=== PATIENT | male | born 1960 | race Caucasian/White ===

== ENCOUNTER 2017-03-04 17:22 | Emergency (ER) | payer SELFPAY ==
[~2017-03-04] VITALS: Ht 180.3 cm; Wt 88.6 kg
[~2017-03-04 17:22] MED LIST: PANT1TAB48 PO
[2017-03-04 17:30] VITALS: TEMP 36.8; Ht 180.3 cm; Wt 88.6 kg
[2017-03-04] MEDS ORDERED: ACET-1256 PO (17:59)
--- NOTE | 2017-03-04 18:39 | DIAGNOSTIC IMAGING REPORT ---
RIGHT KNEE 3 VIEWS CLINICAL HISTORY: Right knee pain. FINDINGS: AP, crosstable lateral, and sunrise views of the right knee are obtained. No prior studies are available for comparison at the time of dictation. The skeletal structures are well mineralized. No fracture is seen. There is moderate degenerative narrowing at the patellofemoral articulation. Mild narrowing is seen in the lateral compartment. Postoperative change is consistent with previous anterior cruciate ligament repair. A calcified fabella is incidentally noted. There are marginal osteophytes and patellar enthesophytes. A small joint effusion is noted. Prepatellar soft tissue swelling is observed. IMPRESSION: 1. Joint effusion and prepatellar soft tissue swelling. No acute bony abnormality is seen. 2. Degenerative and postoperative change as above. Electronically signed by: Jude Honeycutt M.D. 03/04/2017 6:38 PM Dictated Date/Time: 03/04/2017 6:36 PM
[2017-03-04] MEDS ORDERED: TRAM-10 PO (19:14)
[2017-03-04 19:33] VITALS: BP 127/91; PULSE 50; O2SAT 97
--- NOTE | 2017-03-04 23:17 | EMERGENCY ROOM VISIT NOTE ---
History First contact with patient: 17:44 Chief Complaint: KNEEPAIN Stated Complaint: R KNEE PAIN History of Present Illness The patient is a 56 year old male who presents to the Emergency Room with complaints of right knee pain, swelling and sensation like his knee is clicking or locking. The patient reports a prior history of anterior cruciate ligament reconstruction many years ago by Dr. Nelson. He reports that he was on his feet a lot yesterday, but denies any significant injury. The patient rates his discomfort an 8 out of 10. Review of Systems 10 system review was performed and was negative except for pertinent positives and negatives as indicated in history of present illness Past Medical/Surgical History Medical Problems: (1) Arthritis (2) Chronic hepatitis C (3) Neuropathy Surgical Problems: (1) Hx of tonsillectomy Family History Patient reports no known family medical history. Social History Smoking Status: Never Smoker Alcohol Use: none Marital Status: Housing Status: lives with family Occupation Status: employed Current/Historical Medications Scheduled Pantoprazole (Protonix), 40 MG PO DAILY Scheduled PRN Acetaminophen (Tylenol), 1,000 MG PO Q6H PRN for Pain Tramadol (Ultram), 1-2 TAB PO Q4H PRN for Pain Physical Exam Vital Signs Date Time Temp Pulse Resp B/P (MAP) Pulse Ox O2 Delivery O2 Flow Rate FiO2 03/04/17 19:33 50 127/91 97 03/04/17 17:30 36.8 51 20 135/80 97 Room Air Physical Exam CONSTITUTIONAL: Healthy and well nourished. Alert and oriented X 3 with positive affect. Patient does not appear in any acute distress. HEENT: Normocephalic, atraumatic. Pupils equal, round and reactive. NECK: Full active range of motion without discomfort. MUSCULOSKELETAL: Examination of the right knee does not show any erythema or skin wounds. 1+ joint effusion is noted. The patient has mild discomfort with flexion and extension. He has mild tenderness to palpation over the posteromedial joint line. Collateral ligaments are intact with varus and valgus stress. No popliteal masses. Negative anterior draw. Pedal pulses are intact. INTEGUMENTARY: No rash or other significant dermatologic conditions noted. NEUROLOGIC: No focal neurologic deficits noted. Medical Decision & Procedures ER Provider Diagnostic Interpretation: My interpretation of right knee x-rays does not show any destruction of lesions , fractures or dislocation. Small joint effusion is noted. Radiologist report is as follows: RIGHT KNEE 3 VIEWS CLINICAL HISTORY: Right knee pain. FINDINGS: AP, crosstable lateral, and sunrise views of the right knee are obtained. No prior studies are available for comparison at the time of dictation. The skeletal structures are well mineralized. No fracture is seen. There is moderate degenerative narrowing at the patellofemoral articulation. Mild narrowing is seen in the lateral compartment. Postoperative change is consistent with previous anterior cruciate ligament repair. A calcified fabella is incidentally noted. There are marginal osteophytes and patellar enthesophytes. A small joint effusion is noted. Prepatellar soft tissue swelling is observed. IMPRESSION: 1. Joint effusion and prepatellar soft tissue swelling. No acute bony abnormality is seen. 2. Degenerative and postoperative change as above. ED Course Patient history and physical exam were performed. Nurse's notes were reviewed. Vital signs were reviewed and were normal. X-rays of the right knee shows a small joint effusion, otherwise no acute findings are noted. The patient reports that he does still have his crutches at home. He was encouraged to limit weightbearing until reevaluated by Dr. Nelson. He was encouraged to alternate ibuprofen and Tylenol as needed for additional pain relief. Intermittent application of ice for swelling. The patient was happy with plan of care, voiced understanding of all discharge instructions, and rated his pain an 8 out of 10 at the time of discharge. Medical Decision Medication Reconcilliation Current Medication List: was personally reviewed by me Blood Pressure Screening Patient's blood pressure: Normal blood pressure Impression Primary Impression: Right knee pain Additional Impression: Status post arthroscopic surgery of right knee Departure Information Prescriptions Tramadol (Ultram) 50 Mg Tab 1-2 TAB PO Q4H Y for Pain, #20 TAB For Initial Treatment Prov: Bry Bello PA 03/04/17 Referrals Higinio Bianchi M.D. (PCP) Patient Instructions My [facility] Problem Qualifiers Primary Impression: Right knee pain Chronicity: acute Qualified Codes: M25.561 - Pain in right knee
== END 2017-03-04 19:30 | disposition home or self-care (01) ==
LOC: C.EDB 17:24 → C.EDD 19:30
DX: M25.561 Pain in right knee (principal); Z98.890 Other specified postprocedural states; M19.90 Unspecified osteoarthritis, unspecified site; B18.2 Chronic viral hepatitis C; G62.9 Polyneuropathy, unspecified; Z79.899 Other long term (current) drug therapy

== ENCOUNTER 2017-03-26 11:29 | Emergency (ER) | payer SELFPAY ==
[~2017-03-26] VITALS: Ht 180.3 cm; Wt 88.5 kg
[2017-03-26 11:29] VITALS: TEMP 36.5; O2SAT 96; Ht 180.3 cm; Wt 88.5 kg
[~2017-03-26 11:29] MED LIST changes: -ASPIRIN 325 MG ECTAB PO ONE; -ATROPINE SULFATE 0.1 MG/ML 5ML SYR IV PRN; -BETAMETH SOD PHOS/ACETATE IA 6 MG/ML XX ONE; -BUPIVACAINE 0.5 % 5 MG/1 ML MPF 30ML VIAL ONE; -CEFAZOLIN 2000MG IV PUSH 10 ML IV SCH; -DEXAMETHASONE SOD INJ 4 MG/ML VIAL ONE; -EpHEDrine SULFATE INJ 50 MG/ML AMP IV PRN; -EpINEphrine INJ 1MG/ML AMP 1 MG/ML AMP ONE; -FAMOTIDINE 10 MG/ML 2ML VIAL IV STA; -FAMOTIDINE IV INJ 20 MG in SYRINGE 3 ML IV ONE; -FENTANYL CITRATE INJ 50 MCG/1 ML 2 ML VIAL IV PRN; -FENTANYL CITRATE INJ 50 MCG/1 ML 2 ML VIAL ONE; -HYDROmorphone INJ 1 MG/ML SYR IV PRN; -KETOROLAC TROMETHAMINE 30 MG/ML VIAL ONE; -LACTATED RINGER'S 1000ML 1,000 ML IV SCH; -LIDOCAINE HCL 2% 2 ML VIAL (20MG/ML) ONE; -METOCLOPRAMIDE HCL INJ 5 MG/ML 2 ML VIAL IV ONE; -METOCLOPRAMIDE HCL INJ 5 MG/ML 2 ML VIAL ONE; -MIDAZOLAM HCL 1 MG/ML 2ML VIAL ONE; -MoRPHine SULFATE 10 MG/ML CARP/VIAL ONE; -MoRPHine SULFATE 2 MG/ML CARP IV ONE; -NITROGLYCERIN 0.4 MG SL PER TAB CHARGE ONE; -NITROGLYCERIN 0.4 MG SL PER TAB CHARGE SL STA; -ONDANSETRON INJ 2 MG/ML 2 ML VIAL IV PRN; -ONDANSETRON INJ 2 MG/ML 2 ML VIAL ONE; -OXYCODONE/ACETAMINOPHEN 5-325 TAB PO PRN; -PROPOFOL IV EMULSION 10 MG/ML 20 ML VIAL IV ONE; -RANITIDINE HCL 25 MG/ML INJ ONE; -RANITIDINE IV 50 MG in DEXTROSE 5% 100ML 100 ML IV SCH; -ROPIVACAINE 0.5% 5 MG/ML 30 ML VIAL ONE; -SODIUM CHLORIDE 0.9% 1000ML 1,000 ML IV SCH
[2017-03-26] MEDS ORDERED: ALBUT/IPRATROP 3MG/0.5MG NEB 3 ML VIAL INH STA (11:41)
[2017-03-26 11:55] LABS: BASO % 0.1 %; BASO ABS # 0.01 K/uL (0-0.2); COMPLETE YES; EOS % 0.6 %; HEMATOCRIT 43.8 % (42-52); IG% 0.3 %; LYMPH % 7.1 %; LYMPH ABS # 0.88 K/uL (1.2-3.4); MEAN CELL VOLUME 95.4 fL (80-100); MEAN CORPUSCULAR HEMOGLOBIN 33.6 pg (25-34); MEAN CORPUSCULAR HGB CONC 35.2 g/dl (32-36); MEAN PLATELET VOLUME 11.1 fL (7.4-10.4); NEUT % 90.9 %; PLATELET COUNT 161 K/uL (130-400); RED BLOOD COUNT 4.59 M/uL (4.7-6.1); WHITE BLOOD COUNT 12.38 K/uL (4.8-10.8)
--- NOTE | 2017-03-26 11:57 | DIAGNOSTIC IMAGING REPORT ---
CHEST ONE VIEW PORTABLE HISTORY: Evaluate Fever/Sepsis COMPARISON: Chest 02/16/2015. FINDINGS: The lungs are clear. Cardiac silhouette is normal in size. No pleural effusions. No pneumothorax. IMPRESSION: No acute process. Electronically signed by: Brent Rodriguez M.D. 03/26/2017 11:55 AM Dictated Date/Time: 03/26/2017 11:54 AM
[2017-03-26 12:08] LABS: INR 0.9 (0.9-1.1); PARTIAL THROMBOPLASTIN RATIO 1.1
[2017-03-26 12:13] LABS: ALT/SGPT 24 U/L (12-78); BLOOD UREA NITROGEN 18 mg/dl (7-18); BUN/CREATININE RATIO 20.8 (10-20); CALCIUM 8.3 mg/dl (8.5-10.1); CARBON DIOXIDE 26 mmol/L (21-32); CHLORIDE 107 mmol/L (98-107); CREATININE 0.84 mg/dl (0.60-1.40); GLUCOSE 131 mg/dl (70-99); POTASSIUM 4.3 mmol/L (3.5-5.1); SODIUM 139 mmol/L (136-145)
[2017-03-26 12:24] LABS: ALKALINE PHOSPHATASE 70 U/L (45-117); AST/SGOT 17 U/L (15-37); CKMB/CK RATIO 2.2 (0-3.0); THYROID STIMULATING HORMONE 0.935 uIu/ml (0.300-4.500)
--- NOTE | 2017-03-26 14:45 | EMERGENCY ROOM VISIT NOTE ---
History Report prepared by Sita: Harriet Mccann Under the Supervision of: Dr. Sd Cohen D.O. First contact with patient: 11:30 Chief Complaint: CHEST PAIN Stated Complaint: CHEST PRESSURE History of Present Illness The patient is a 56 year old male who presents to the Emergency Room with complaints of constant left-sided chest pain for the past 1.5 hours. The patient was having an outpatient right knee arthroplasty. When he was waking up from general anesthesia the patient developed some left-sided chest pain. Anesthesiology did an ECG and it appeared normal. They sent off a troponin. The patient's chest pain did not improve. He was given 1 nitro, 324 aspirin, 2 mg morphine, Zantac, and Reglan. The patient was sent to the ED by ambulance for further evaluation. The patient describes his pain as a chest pressure and rates it as a 7/10 in severity. Taking a deep breath exacerbates his pain. He denies any personal cardiac history of history of blood clots. 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 Review of Systems See HPI for pertinent positives & negatives. A total of 10 systems reviewed and were otherwise negative. Past Medical & Surgical Medical Problems: (1) Arthritis (2) Chronic hepatitis C (3) Neuropathy Surgical Problems: (1) History of arthroscopic knee surgery (2) History of eye surgery (3) History of hernia repair (4) History of repair of anterior cruciate ligament of right knee (5) Hx of tonsillectomy Family History Patient reports no known family medical history. Social History Smoking Status: Never Smoker Alcohol Use: none Marital Status: Housing Status: lives with family Occupation Status: employed Current/Historical Medications Scheduled Pantoprazole (Protonix), 40 MG PO QAM Allergies Coded Allergies: No Known Allergies (Unverified , 03/26/17) Physical Exam Vital Signs Date Time Temp Pulse Resp B/P (MAP) Pulse Ox O2 Delivery O2 Flow Rate FiO2 03/26/17 14:32 53 143/103 03/26/17 14:05 51 14 97 03/26/17 14:00 52 18 140/80 97 Room Air 03/26/17 14:00 140/80 03/26/17 13:35 61 18 96 03/26/17 13:30 113/83 03/26/17 13:05 48 19 96 03/26/17 13:01 158/99 03/26/17 12:35 52 11 97 03/26/17 12:30 159/99 03/26/17 12:24 49 17 100 03/26/17 12:03 45 03/26/17 12:00 141/85 03/26/17 11:54 50 18 96 03/26/17 11:49 49 16 135/92 99 Room Air 03/26/17 11:35 126/77 03/26/17 11:29 96 Room Air 03/26/17 11:29 96 Room Air 03/26/17 11:29 36.5 53 16 126/77 96 Room Air Physical Exam CONSTITUTIONAL/VITAL SIGNS: Reviewed / noted above. GENERAL: Non-toxic in appearance. INTEGUMENTARY: Warm, dry, and [place]. HEAD: Normocephalic. EYES: without scleral icterus or trauma. ENT/OROPHARYNX: clear and moist. LYMPHADENOPATHY/NECK: Is supple without lymphadenopathy or meningismus. RESPIRATORY: Lungs clear and equal. CARDIOVASCULAR: Regular rate and rhythm. GI/ABDOMEN: Soft and nontender. No organomegaly or pulsatile mass. No rebound or guarding. Normal bowel sounds. EXTREMITIES: Warm and well perfused. BACK: No CVA tenderness. NEUROLOGICAL: Intact without focal deficits. PSYCHIATRIC: normal affect. MUSCULOSKELETAL: Normally developed with good muscle tone. Medical Decision & Procedures ER Provider Diagnostic Interpretation: Radiology results as stated below per my review and radiologist interpretation: CHEST ONE VIEW PORTABLE HISTORY: Evaluate Fever/Sepsis COMPARISON: Chest 02/16/2015. FINDINGS: The lungs are clear. Cardiac silhouette is normal in size. No pleural effusions. No pneumothorax. IMPRESSION: No acute process. Electronically signed by: Brent Rodriguez M.D. 03/26/2017 11:55 AM Dictated Date/Time: 03/26/2017 11:54 AM Laboratory Results 03/26/17 11:42 Red Blood Count 4.59, Mean Corpuscular Volume 95.4, Mean Corpuscular Hemoglobin 33.6, Mean Corpuscular Hemoglobin Concent 35.2, Mean Platelet Volume 11.1, Neutrophils (%) (Auto) 90.9, Lymphocytes (%) (Auto) 7.1, Monocytes (%) (Auto) 1.0, Eosinophils (%) (Auto) 0.6, Basophils (%) (Auto) 0.1, Neutrophils # (Auto) 11.26, Lymphocytes # (Auto) 0.88, Monocytes # (Auto) 0.12, Eosinophils # (Auto) 0.07, Basophils # (Auto) 0.01 03/26/17 11:42 Test 03/26/17 11:42 03/26/17 13:52 White Blood Count 12.38 K/uL (4.8-10.8) Red Blood Count 4.59 M/uL (4.7-6.1) Hemoglobin 15.4 g/dL (14.0-18.0) Hematocrit 43.8 % (42-52) Mean Corpuscular Volume 95.4 fL (80-100) Mean Corpuscular Hemoglobin 33.6 pg (25-34) Mean Corpuscular Hemoglobin Concent 35.2 g/dl (32-36) Platelet Count 161 K/uL (130-400) Mean Platelet Volume 11.1 fL (7.4-10.4) Neutrophils (%) (Auto) 90.9 % Lymphocytes (%) (Auto) 7.1 % Monocytes (%) (Auto) 1.0 % Eosinophils (%) (Auto) 0.6 % Basophils (%) (Auto) 0.1 % Neutrophils # (Auto) 11.26 K/uL (1.4-6.5) Lymphocytes # (Auto) 0.88 K/uL (1.2-3.4) Monocytes # (Auto) 0.12 K/uL (0.11-0.59) Eosinophils # (Auto) 0.07 K/uL (0-0.5) Basophils # (Auto) 0.01 K/uL (0-0.2) RDW Standard Deviation 46.0 fL (36.4-46.3) RDW Coefficient of Variation 13.2 % (11.5-14.5) Immature Granulocyte % (Auto) 0.3 % Immature Granulocyte # (Auto) 0.04 K/uL (0.00-0.02) Prothrombin Time 10.0 SECONDS (9.0-12.0) Prothromb Time International Ratio 0.9 (0.9-1.1) Activated Partial Thromboplast Time 27.5 SECONDS (21.0-31.0) Partial Thromboplastin Ratio 1.1 Anion Gap 7.0 mmol/L (3-11) Est Creatinine Clear Calc Drug Dose 104.5 ml/min Estimated GFR () 113.4 Estimated GFR (Non- 97.9 BUN/Creatinine Ratio 20.8 (10-20) Calcium Level 8.3 mg/dl (8.5-10.1) Total Bilirubin 0.2 mg/dl (0.2-1) Direct Bilirubin 0.1 mg/dl (0-0.2) Aspartate Amino Transf (AST/SGOT) 17 U/L (15-37) Alanine Aminotransferase (ALT/SGPT) 24 U/L (12-78) Alkaline Phosphatase 70 U/L (45-117) Total Creatine Kinase 170 U/L (39-308) Creatine Kinase MB 3.8 ng/ml (0.5-3.6) Creatine Kinase MB Ratio 2.2 (0-3.0) Total Protein 6.8 gm/dl (6.4-8.2) Albumin 3.5 gm/dl (3.4-5.0) Lipase 163 U/L (73-393) Thyroid Stimulating Hormone (TSH) 0.935 uIu/ml (0.300-4.500) Troponin I < 0.015 ng/ml (0-0.045) Laboratory results as stated above per my review. Medications Administered Medications (Trade) Dose Ordered Sig/Laura Route Start Time Stop Time Status Last Admin Dose Admin Albuterol/ Ipratropium (Duoneb) 3 ml NOW STAT INH 03/26/17 11:41 03/26/17 11:42 DC 03/26/17 11:51 3 ML ECG Indication: chest pain Rate (beats per minute): 47 Rhythm: sinus bradycardia Findings: no acute ischemic change, no ectopy ED Course 1130: Previous medical records were reviewed. I had spoken with the anesthesiologist prior to the patient's arrival. The patient was evaluated in room C3. A complete history and physical examination was performed. 1141: DuoNeb 3 ml INH 1447: I reassessed the patient at this time. He is feeling better and resting comfortably. I discussed the results and treatment plan with the patient. I answered all pertaining questions that he had. He expressed understanding and verbalized agreement. The patient will be discharged home. Medical Decision Differentials considered include acute myocardial infarction, acute coronary syndrome, myocarditis, pericarditis, pericardial effusions /tamponade, esophageal perforation, thoracic aortic dissection, pulmonary embolism, pneumonia, pneumothorax, pancreatitis, shingles, acute cholecystitis, and perforated abdominal viscus. This is a 56-year-old male who presents to the ED with a chief complaint of chest discomfort following surgery. The patient was awakening from general anesthesia and develop chest discomfort. He was treated over in the outpatient surgery unit and received some morphine, Reglan and Zantac. This did not help and therefore the patient was given nitroglycerin and aspirin and sent here. The patient just had his right knee operated on in the outpatient unit. The patient states that he had some chest tightness and pain. He did not have any shortness of breath, fevers or other significant symptoms. His vital signs remained stable during the surgery. The patient currently denies any significant symptoms. He has some mild left-sided chest tightness. A twelve- lead EKG shows a sinus bradycardia without ischemic changes. His EKG in the surgery unit did not show any abnormalities. His troponin there was normal. 2 sequential troponins's by 2 hours were done. Both were less than 0.05. The patient's blood work was otherwise unremarkable. EKG/monitor here did not show arrhythmia. Chest x-ray was clear. I spoke with the patient about the results. His symptoms have improved. The patient denies any cardiac history. He has no CVA risk factors for acute coronary process. He is felt to be stable for discharge. Medication Reconcilliation Current Medication List: was personally reviewed by me Blood Pressure Screening Patient's blood pressure: Normal blood pressure Impression Primary Impression: Substernal precordial chest pain Scribe Attestation The scribe's documentation has been prepared under my direction and personally reviewed by me in its entirety. I confirm that the note above accurately reflects all work, treatment, procedures, and medical decision making performed by me. Departure Information Dispostion Home / Self-Care Referrals Higinio Bianchi M.D. (PCP) Patient Instructions My [facility] Additional Instructions Follow-up with your doctor for further care and evaluation in 1-4 days. Return to the emergency department for worsening or new symptoms or any concerns. You have been examined and treated today on an emergency basis only. This is not a substitute for, or an effort to provide, complete comprehensive medical care. It is impossible to recognize and treat all injuries or illnesses in a single emergency department visit. It is therefore important that you follow up closely with your doctor. Call as soon as possible for an appointment.
[2017-03-26 15:09] VITALS: BP 159/107; PULSE 54; O2SAT 99
== END 2017-03-26 15:11 | disposition home or self-care (01) ==
LOC: EDBD 11:29 → C.EDC 11:33
DX: R07.2 Precordial pain (principal); B19.20 Unspecified viral hepatitis C without hepatic coma; G62.9 Polyneuropathy, unspecified; M19.90 Unspecified osteoarthritis, unspecified site; Z98.890 Other specified postprocedural states; Z79.899 Other long term (current) drug therapy

== ENCOUNTER → 2017-03-26 | Day surgery (SDC) | payer SELFPAY ==
[2017-03-19 09:42] VITALS: Ht 180.3 cm; Wt 88.6 kg
[~2017-03-26] VITALS: Ht 180.3 cm; Wt 88.6 kg
[~2017-03-26] MED LIST changes: +ASPIRIN 325 MG ECTAB PO ONE; +ATROPINE SULFATE 0.1 MG/ML 5ML SYR IV PRN; +BETAMETH SOD PHOS/ACETATE IA 6 MG/ML XX ONE; +BUPIVACAINE 0.5 % 5 MG/1 ML MPF 30ML VIAL ONE; +CEFAZOLIN 2000MG IV PUSH 10 ML IV SCH; +DEXAMETHASONE SOD INJ 4 MG/ML VIAL ONE; +EpHEDrine SULFATE INJ 50 MG/ML AMP IV PRN; +EpINEphrine INJ 1MG/ML AMP 1 MG/ML AMP ONE; +FAMOTIDINE 10 MG/ML 2ML VIAL IV STA; +FAMOTIDINE IV INJ 20 MG in SYRINGE 3 ML IV ONE; +FENTANYL CITRATE INJ 50 MCG/1 ML 2 ML VIAL IV PRN; +FENTANYL CITRATE INJ 50 MCG/1 ML 2 ML VIAL ONE; +HYDROmorphone INJ 1 MG/ML SYR IV PRN; +KETOROLAC TROMETHAMINE 30 MG/ML VIAL ONE; +LACTATED RINGER'S 1000ML 1,000 ML IV SCH; +LIDOCAINE HCL 2% 2 ML VIAL (20MG/ML) ONE; +MELA1TAB5 PO; +METOCLOPRAMIDE HCL INJ 5 MG/ML 2 ML VIAL IV ONE; +METOCLOPRAMIDE HCL INJ 5 MG/ML 2 ML VIAL ONE; +MIDAZOLAM HCL 1 MG/ML 2ML VIAL ONE; +MoRPHine SULFATE 10 MG/ML CARP/VIAL ONE; +MoRPHine SULFATE 2 MG/ML CARP IV ONE; +NITROGLYCERIN 0.4 MG SL PER TAB CHARGE ONE; +NITROGLYCERIN 0.4 MG SL PER TAB CHARGE SL STA; +ONDANSETRON INJ 2 MG/ML 2 ML VIAL IV PRN; +ONDANSETRON INJ 2 MG/ML 2 ML VIAL ONE; +OXYCODONE/ACETAMINOPHEN 5-325 TAB PO PRN; +PROPOFOL IV EMULSION 10 MG/ML 20 ML VIAL IV ONE; +RANITIDINE HCL 25 MG/ML INJ ONE; +RANITIDINE IV 50 MG in DEXTROSE 5% 100ML 100 ML IV SCH; +ROPIVACAINE 0.5% 5 MG/ML 30 ML VIAL ONE; +SODIUM CHLORIDE 0.9% 1000ML 1,000 ML IV SCH; +TRAM-10 PO
--- NOTE | 2017-03-26 08:16 | History & Physical Bridge - SC ---
H&P Re-Evaluation Bridge Note: I have examined the patient, reviewed the History & Physical and in the interval since the performance of the History & Physical I have noted the following changes of clinical significance: No changes noted
--- NOTE | 2017-03-26 09:09 | Discharge Instructions-SurgCtr ---
Discharge Instructions Date of Service Mar 26, 2017. Visit Reason for Visit: Right Knee Lateral Meniscus Tear, Left Plantar Fas Discharge Discharge Diagnosis / Problem: SAME ABOVE Discharge Goals Goal(s): Decrease discomfort, Improve function Activity Recommendations Activity Limitations: as noted below Exercise/Sports Limitations: until after follow-up appointment Shower/Bathe: tomorrow Anesthesia . Post Anesthesia Instructions: If you have had General Anesthesia or IV Sedation: * Do not drive today. * Resume driving when surgeon permits. * Do not make important decisions or sign legal documents today. * Call surgeon for: 1. Temperature elevations greater than 101 degrees F. 2. Uncontrollable pain. 3. Excessive bleeding. 4. Persistent nausea and vomiting. 5. Medication intolerance (nausea, vomiting or rash). * For nausea and vomiting use only clear liquids such as: tea, soda, bouillon until nausea subsides, then gradually increase diet as tolerated. * If you have any concerns or questions, call your surgeon's office. If physician is unavailable and it is an emergency, call 911 or go to the nearest emergency room. . Instructions / Follow-Up Instructions / Follow-Up MEDICATIONS: * Resume previous medications unless instructed otherwise by your surgeon. * Always take pain medication on a full stomach or with food to avoid upset stomach. * Do not drink alcohol or drive while taking narcotics. * Ibuprofen or Tylenol may be taken if narcotic not needed. SPECIAL CARE INSTRUCTIONS: __ None _X_ Keep extremity elevated and iced x 48 hours; apply ice 20-30 minutes 8-10 times/day. May remove at night. __ Crutches __ May discard when able __ Brace/Post-op shoe __ 24 hrs/day __ Remove at night _X_ Dressing __ Maintain until seen in office, may shower with plastic over site _X_ Remove dressings in 24-48 hours and then may shower _X_ Cover incisions with band-aids after showering __ Do not remove steri-strips Call physician if chills or temperature rises above 102 degrees or pain unrelieved by prescribed pain medications. Office [phone] Diet Recommendations Home Diet: no limitations Procedures Procedures Performed: Right Knee Arthroscopy, Partial Lateral Meniscectomy, Removal of Loose Body; Injection Left Plantar Fascia Pending Studies Studies pending at discharge: no Medical Emergencies . Who to Call and When: Medical Emergencies: If at any time you feel your situation is an emergency, please call 911 immediately. . Non-Emergent Contact Non-Emergency issues call your: Primary Care Provider . . "Provider Documentation" section prepared by Pritesh Villasenor. .
[2017-03-26 11:15] VITALS: BP 141/87
[2017-03-26 11:16] VITALS: PULSE 55; O2SAT 99
--- NOTE | 2017-03-26 11:16 | Progress Note ---
Progress Note Date of Service Mar 26, 2017. Progress Note Joshua Warren is a 56 yo male immediately post op from right knee arthroscopy and partial meniscectomy. Patient has a PMH significant for GERD and no known prior cardiac history. Patient received a GA with LMA and had a benign intraoperative course without complications, other than receiving labetalol for HTN. In PACU patient complained of significant sternal and left sided chest pain that he described as chest pressure. Vital signs were stable with appropriate blood pressure, HR (baseline bradycardia), and oxygenation. Due to the chest pain, patient was continued on supplemental oxygen and a STAT EKG was ordered. He was given 325 mg of ASA to chew. EKG was relatively unchanged from prior with bradycardia and occasional premature supraventricular contractions. Due to history of GERD, patient was treated with zantac and reglan without significant improvement in symptoms. Patient was given 0.4 mg of sublingual nitro with some improvement in symptoms. He was also given 2 mg of morphine and blood was drawn for troponins and BMP. Decision was made to transfer to ED for further evaluation of perioperative chest pain. Patient's was updated and report was called to the ED notifying them of the patient prior to arrival. Patient was sent via EMS to [facility] ED at 11:27. Report called to Dr. Carrillo at 11:38 to update him on the patient's status and as well as the patient's transfer to the [facility] ED. Laura Hanks MD, PhD
[2017-03-26 11:20] LABS: BLOOD UREA NITROGEN 17 mg/dl (7-18); BUN/CREATININE RATIO 21.8 (10-20); CALCIUM 8.1 mg/dl (8.5-10.1); CARBON DIOXIDE 25 mmol/L (21-32); CHLORIDE 107 mmol/L (98-107); CREATININE 0.79 mg/dl (0.60-1.40); GLUCOSE 147 mg/dl (70-99); POTASSIUM 4.1 mmol/L (3.5-5.1); SODIUM 140 mmol/L (136-145)
--- NOTE | 2017-03-26 11:47 | Anesthesiology Progress Note ---
Anesthesia Post Op Note Date & Time Mar 26, 2017 at 11:45 Vital Signs Pain Intensity: 7 Vital Signs Past 12 Hours Date Time Temp Pulse Resp B/P (MAP) Pulse Ox O2 Delivery O2 Flow Rate FiO2 03/26/17 11:16 54 17 99 03/26/17 11:16 55 17 03/26/17 11:15 45 14 141/87 98 Diffusion Mask 5 03/26/17 11:15 141/87 03/26/17 11:11 46 16 126/87 99 03/26/17 11:11 47 16 03/26/17 11:06 42 15 100 03/26/17 11:06 48 15 03/26/17 11:05 128/90 03/26/17 11:01 47 8 99 03/26/17 11:01 47 8 03/26/17 11:00 131/86 03/26/17 10:56 48 12 96 03/26/17 10:56 49 12 03/26/17 10:55 104/83 03/26/17 10:51 56 16 03/26/17 10:51 55 16 95 03/26/17 10:50 139/93 03/26/17 10:46 47 14 03/26/17 10:46 46 14 98 03/26/17 10:45 153/92 03/26/17 10:41 47 15 03/26/17 10:41 47 15 98 03/26/17 10:40 132/88 03/26/17 10:36 47 15 03/26/17 10:36 47 15 97 03/26/17 10:35 139/79 03/26/17 10:31 48 16 03/26/17 10:31 47 16 99 03/26/17 10:30 127/92 03/26/17 10:30 36.4 54 12 127/92 98 Diffusion Mask 5 03/26/17 10:26 58 13 03/26/17 10:26 56 13 100 03/26/17 10:25 135/85 03/26/17 10:21 48 12 03/26/17 10:21 48 12 100 03/26/17 10:20 133/89 03/26/17 10:16 46 8 153/90 100 03/26/17 10:16 46 8 03/26/17 10:11 48 17 95 03/26/17 10:11 48 17 03/26/17 10:10 147/101 03/26/17 10:06 47 18 152/91 95 03/26/17 10:06 49 18 03/26/17 10:02 148/97 03/26/17 10:01 47 17 94 03/26/17 10:01 47 17 03/26/17 09:56 49 14 03/26/17 09:56 52 14 124/100 100 03/26/17 09:51 52 15 03/26/17 09:51 56 15 94 03/26/17 09:50 149/84 03/26/17 09:46 48 13 03/26/17 09:46 50 13 128/86 94 03/26/17 09:41 50 14 03/26/17 09:41 36.4 51 12 138/83 96 Room Air 03/26/17 09:41 55 14 138/83 96 03/26/17 09:37 180/98 03/26/17 09:36 54 16 183/107 99 03/26/17 09:36 52 16 03/26/17 09:31 56 12 98 03/26/17 09:31 55 12 03/26/17 09:30 141/96 03/26/17 09:26 54 15 134/90 97 03/26/17 09:26 56 15 03/26/17 09:21 66 13 03/26/17 09:21 63 13 98 03/26/17 09:20 133/85 03/26/17 09:16 62 11 03/26/17 09:16 59 11 97 03/26/17 09:15 61 13 03/26/17 09:15 61 13 108/72 97 03/26/17 09:15 61 13 03/26/17 09:15 61 13 108/72 97 03/26/17 09:10 58 15 118/61 97 03/26/17 09:10 59 15 03/26/17 09:10 36.4 54 16 118/61 97 Diffusion Mask 6 03/26/17 09:10 58 15 118/61 97 03/26/17 09:10 59 15 03/26/17 07:16 36.7 52 20 122/79 (93) 96 Room Air Notes Mental Status: alert / awake / arousable, participated in evaluation Pt Amnestic to Procedure: Yes Nausea / Vomiting: adequately controlled Pain: see Notes Airway Patency, RR, SpO2: stable & adequate BP & HR: stable & adequate Hydration State: stable & adequate Anesthetic Complications: PACU course was notable for chest pain necessitating transfer to [facility] ED for further evaluation. Please see separate anesthesia progress note for more detailed summary of postoperative course.
--- NOTE | 2017-03-26 12:19 | OPERATIVE REPORT ---
DATE OF OPERATION: 03/26/2017 PREOPERATIVE DIAGNOSES: 1. Lateral meniscus tear. 2. Intercondylar notch loose body. 3. Status post anterior cruciate ligament tear and repair of his cruciate ligament. 4. Chronic left foot plantar fasciitis. POSTOPERATIVE DIAGNOSES: 1. Chronic anterior cruciate ligament tear. 2. Large loose body intercondylar notch. 3. Lateral meniscus tear. 4. Medial meniscus tear. 5. 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 6. Chronic left foot plantar fasciitis. PROCEDURES: 1. Right knee arthroscopy. 2. Partial lateral meniscectomy. 3. Partial medial meniscectomy. 4. Removal of large intercondylar loose body. 5. Removal of scar tissue of patellofemoral joint with chondroplasty of the femoral condyle and underneath surface of the patella. SURGEON: Higinio Carrillo MD DATA PROCESSOR: GREGORIO Quinones. ANESTHESIOLOGIST: Dr. Kamara. ANESTHESIA: LMA. DRAINS: None. COMPLICATIONS: None. CONDITION: The patient tolerated the procedure well and returned to the recovery room in apparent satisfactory condition. INDICATIONS FOR SURGERY: Kelvin is a 56-year-old male who has had pain and discomfort in his knee, consistent with a lateral meniscus tear. I was unable to get him into full extension. He has had ACL tear years ago with probably a retear of his graft. We went over treatment options and he elected to go ahead and proceed with knee arthroscopy. The procedure, expected outcomes and side effects were all explained in detail. DESCRIPTION OF PROCEDURE: The patient was taken to the OR, at which time he was placed supine on the operating table and put to sleep by the anesthesia department. Examination of the knee was performed. Hard to examine his knee. We had trouble to get him relax in the OR. I did not see it was a sloppy knee, but it was tight. You could tell there was some slight transition on his Sacha test. His pivot shift was just 0 to +1. I went ahead and prepped and draped in the usual sterile fashion. I began arthroscopic examination in the anteromedial and anterolateral portals. Immediately, we found a lot of scar tissue in the intercondylar notch and this was shaved out. We found an anterior horn lateral meniscus tear. This was trimmed back. Large intercondylar notch loose body. This was removed with different makayla. The ACL was completely gone. PCL was intact. We found a posterior horn medial meniscus tear and anterior horn lateral meniscus tear, both of these were trimmed back to stable rims. There was lot of scar tissue of the patellofemoral joint, it was shaved out. He also had grade 3 changes to the femoral condyle, especially in the trochlear groove area and underneath surface of the patella. The knee then was copiously irrigated. All cannulas were removed. Portals were closed with 4-0 nylon sutures. 30 mL of ropivacaine, 10 mg of Toradol, and 1 mL of epinephrine was placed in the knee joint. He was placed a sterile dressing of Xeroform, 4 x 4, ABD, Sof-Rol, and Austin bandage and returned back to recovery room in apparent satisfactory condition. SURGICAL FINDINGS: Include, 1. Chronic medial and lateral meniscus tears. 2. He had a large intracondylar loose body, probably 2 x 3 cm in size. 3. He had degenerative joint disease of the medial femoral condyle, trochlear groove and the undersurface of patella, grade 2-3. 4. He had lot of scar tissue and arthrofibrosis of the patellofemoral joint. 5. He had a chronic ACL tear. ADDENDUM: As part of the procedure, we did a cortisone shot, 2 mL Celestone, 0.5 mL of Marcaine into the left foot when the patient was put to sleep and prior to the operation of his knee began. I attest to the content of the Intraoperative Record and any orders documented therein. Any exceptions are noted below. JOSE F
== END | disposition home or self-care (01) ==
LOC: X.SURG 06:53
PROVIDERS: ATTEND Orthopaedic Surgery
DX: S83.281A Other tear of lateral meniscus, current injury, right knee, initial encounter (principal); S83.241A Other tear of medial meniscus, current injury, right knee, initial encounter; S83.511A Sprain of anterior cruciate ligament of right knee, initial encounter; M23.41 Loose body in knee, right knee; M24.661 Ankylosis, right knee; X58.XXXA Exposure to other specified factors, initial encounter; M72.2 Plantar fascial fibromatosis; M17.11 Unilateral primary osteoarthritis, right knee